=== PATIENT | male | born 1970 | race Caucasian/White ===

== ENCOUNTER 2019-01-12 00:44 | Emergency (ER) | payer BC, OTHER ==
[2019-01-12 01:12] VITALS: BMI 25.8
--- NOTE | 2019-01-12 01:12 | PDOC ---
History of Present Illness - General Chief Complaint: Blood Pressure Problem Stated Complaint: R/O HIGH BP Time Seen by Provider: 01/12/19 01:11 History Source: Patient Exam Limitations: No Limitations - History of Present Illness Initial Comments: 01/12/19 01:11 Katie Marin is a 48yM w PMHx HTN presenting w HTN and dyspnea. Measured BP 150-180/100 at store automated BP machine at 12am this morning. Associated worsening dyspnea w exertion. Also has increasing frequent L sided headaches (1/ week), worsening short field vision over past 3 months. Not taking any HTN meds. Denies alcohol, smoking, illicit drugs. Denies current headache, SOB, chest pain, urinary changes. Past History - Past Medical History Home Medications: Ambulatory Orders NK [No Known Home Medication] 01/12/19 - Psycho Social/Smoking Cessation Hx Smoking History: Never smoked Have you smoked in the past 12 months: No Information on smoking cessation initiated: No Hx Alcohol Use: No Drug/Substance Use Hx: No Review of Systems - Review of Systems Constitutional: No: Chills, Fever HEENTM: Yes: Recent change in vision. No: Eye Pain, Nose Pain, Throat Pain, Mouth Pain Respiratory: Yes: SOB with Exertion. No: Cough Cardiac (ROS): No: Chest Pain, Palpitations, Syncope ABD/GI: No: Abdominal Distended, Constipated, Diarrhea, Nausea, Vomiting : No: Burning, Dysuria, Discharge, Flank Pain, Hematuria Musculoskeletal: No: Back Pain, Joint Pain, Muscle Pain, Muscle Weakness Integumentary: No: Bruising, Flushing, Lesions Neurological: Yes: Headache. No: Seizure, Tingling, Tremors Psychiatric: No: Anxiety, Depression, Stressors Endocrine: No: Excessive Sweating, Flushing, Intolerance to Cold, Intolerance to Heat Hematologic/Lymphatic: No: Anemia, Blood Clots, Easy Bleeding *Physical Exam - Vital Signs Last Vital Signs Temp Pulse Resp BP Pulse Ox 97.5 F L 73 20 150/97 97 01/12/19 00:56 01/12/19 00:56 01/12/19 00:56 01/12/19 00:56 01/12/19 00:56 - Physical Exam General Appearance: Yes: Nourished, Appropriately Dressed. No: Apparent Distress HEENT: positive: EOMI, JOSE F, Normal Voice, Hearing Grossly Normal. negative: Scleral Icterus (R), Scleral Icterus (L), Nasal Congestion, Rhinorrhea Respiratory/Chest: positive: Lungs Clear, Normal Breath Sounds. negative: Chest Tender, Respiratory Distress, Crackles, Rales, Rhonchi, Stridor, Wheezing Cardiovascular: positive: Regular Rhythm, Regular Rate, S1, S2. negative: Edema , Murmur Extremity: positive: Normal Capillary Refill Integumentary: positive: Normal Color Neurologic: positive: web manager II-XII NML intact, Fully Oriented, Alert, Normal Mood/ Affect, Normal Response, Motor Strength 5/5, Responsive. negative: Sensory Deficit, Confused, Disoriented Medical Decision Making - Medical Decision Making 01/12/19 01:33 EKG shows NSR, HR 79, QTc 447, no ST changes CXR shows clear lung tanner --- Katie Marin is a 48yM w PMHx HTN presenting w HTN and dyspnea on exertion d/ t HTN med noncompliance. BP measured 150/97. Low concern for ACS w NSR EKG. D/c home w PCP, cardiology referrals. Discharge - Discharge Information Problems reviewed: Yes Clinical Impression/Diagnosis: HTN (hypertension) Qualifiers: Hypertension type: unspecified Qualified Code(s): I10 - Essential (primary) hypertension Condition: Good Disposition: HOME - Admission No - Follow up/Referral Referrals: Won Ramos MD [Staff Physician] - Blayne Gallardo MD [Staff Physician] - - Patient Discharge Instructions Patient Printed Discharge Instructions: DI for High Blood Pressure Additional Instructions: You were seen for high blood pressure and shortness of breath. Your history, exam and labs do not show anything concerning. Please make an appointment to see the referred primary care doctor and last putter away regarding your blood pressure Come back to the ED if you have trouble breathing, chest pain, or worsening headache. - Post Discharge Activity
--- NOTE | 2019-01-12 02:30 | PDOC ---
Attending Attestation - Resident Resident Name: Eryn,Derek - ED Attending Attestation I have performed the following: I have examined & evaluated the patient, The case was reviewed & discussed with the resident, I agree w/resident's findings & plan - HPI HPI: 01/12/19 02:54 Pt took his BP at a pharmacy and it was high; so he is here; no symptoms; no complaints. - Physicial Exam PE: 01/12/19 02:54 Agree with resident exam; normal exam - Medical Decision Making 01/12/19 02:55 CXR normal; EKG is normal 01/12/19 02:56 Pt is stable to go home. He will be asked to follow with PMD and to recheck his BP on 2 separate occasions. If BP is elevated on 3 separate occasions., pt may require treatment with BP meds. 01/12/19 03:05 Pt will be asked to follow with PMD
[2019-01-12 02:38] VITALS: BP 154/102; PULSE 65; TEMP 97.8
--- NOTE | 2019-01-12 20:19 | EKG ---
Test Reason : Blood Pressure : / mmHG Vent. Rate : 079 BPM Atrial Rate : 079 BPM P-R Int : 162 ms QRS Dur : 100 ms QT Int : 390 ms P-R-T Axes : 042 -26 -03 degrees QTc Int : 447 ms NORMAL SINUS RHYTHM MINIMAL VOLTAGE CRITERIA FOR LVH, MAY BE NORMAL VARIANT BORDERLINE ECG NO PREVIOUS ECGS AVAILABLE Confirmed by MD WILNER, JOSEPH ([id number]) on 01/12/2019 8:19:18 PM Referred By: Confirmed By:JOSEPH DARBY MD
== END 2019-01-12 03:02 | disposition home or self-care (01) ==
LOC: JER 00:44
DX: I10 Essential (primary) hypertension (principal)
CPT/HCPCS: 71046-TC-FY; 93005; 93010; 99282-25